=== PATIENT | male | born 1980 | race Caucasian/White ===

== ENCOUNTER 2018-12-24 11:26 | Emergency (ER) | payer OTHER ==
[~2018-12-24] VITALS: Ht 175.3 cm; Wt 86.2 kg
[2018-12-24] MEDS ORDERED: MOBIC15 MG PO (12:16)
[2018-12-24 12:33] VITALS: BP 127/82
== END 2018-12-24 12:33 | disposition home or self-care (01) ==
LOC: M.ERS 11:26
DX: G56.01 Carpal tunnel syndrome, right upper limb (principal); F17.200 Nicotine dependence, unspecified, uncomplicated